=== PATIENT | female | born 1945 | race Caucasian/White ===

== ENCOUNTER 2017-05-23 09:40 | Outpatient (CLI) | payer MEDICARE, OTHER ==
--- NOTE | 2017-05-25 08:34 | Mammography Report ---
DIGITAL SCREENING MAMMOGRAM: 05/23/2017 CLINICAL INDICATION: A 71-year-old with personal history of right breast cancer status post mastecto my. TECHNIQUE: Left CC, laterally exaggerated CC, MLO views were obtained. COMPARISON: 03/2016, 03/2015, 05/2014, 04/2014, 08/2011, 07/2010. The left breast again demonstrates scattered fibroglandular densities bilaterally. Coarse, typically benign calcifications are present. No suspicious masses, clustered microcalcifications, or regions of architectural distortion are identified. IMPRESSION: BENIGN FINDINGS. RECOMMENDATION: ROUTINE ANNUAL SCREENING UNLESS OTHERWISE CLINICALLY INDICATED. BIRADS CATEGORY: 2, BENIGN FINDINGS. STANDARD QUALIFYING STATEMENTS 1. This examination was reviewed with the aid of Computed-Aided Detection (CAD). 2. A negative or benign imaging report should not delay biopsy if clinically suspicious findings are present. Consider surgical consultation if warranted. More than 5% of cancers are not identified b y imaging. 3. Dense breasts may obscure an underlying neoplasm. JOB #: [id number] EXT JOB #:
== END 2017-05-23 09:41 | disposition home or self-care (01) ==
LOC: DI 09:40
PROVIDERS: ATTEND Physician Assistant Medical
DX: Z12.31 Encounter for screening mammogram for malignant neoplasm of breast (principal); Z85.3 Personal history of malignant neoplasm of breast; Z90.11 Acquired absence of right breast and nipple

== ENCOUNTER 2018-07-10 10:20 | Outpatient (CLI) | payer MEDICARE, OTHER | END 2018-07-10 10:21 | disposition home or self-care (01) | LOC: DI 10:20 | PROVIDERS: ATTEND Internal Medicine | DX: Z12.31 Encounter for screening mammogram for malignant neoplasm of breast (principal) | CPT/HCPCS: 77063 ==

== ENCOUNTER 2018-08-12 09:16 | Outpatient (CLI) | payer MEDICARE, OTHER ==
--- NOTE | 2018-08-12 16:36 | DEXA Report ---
Reason: MENOPAUSAL STATE Procedure Date: 08/12/2018 Accession Number: [id number] / [id number] Procedure: DEX - Dexa Spine and/or Hip CPT Code: FULL RESULT: EXAM: Dexa Spine and/or Hip DATE: 08/12/2018 10:20 AM CLINICAL HISTORY: MENOPAUSAL STATE TECHNIQUE: Dual energy x-ray absorptiometry (DXA) was performed on a i-nexus System. Regions measured are the AP Spine, femoral neck, and if needed forearm. COMPARISON: 08/07/2016 In accordance with the International Society for Clinical Densitometry (ISCD) guidelines, data from previous exams may be reanalyzed using current recommendations and techniques. This is done to allow a more accurate basis for comparison with the current study. FINDINGS: The data for the lumbar spine is as follows: BMD (g/cm/cm) T-SCORE Z-SCORE REGION L1 0.843 -2.4 -0.4 L2 0.964 -2.0 0.0 L3 0.999 -1.7 0.3 L4 1.047 -1.3 0.7 TOTAL 0.970 -1.8 0.2 NOTE: All evaluable vertebrae are used for classification The data for the hip is as follows: BMD (g/cm/cm) T-SCORE Z-SCORE REGION Neck 0.730 -2.2 -0.2 TOTAL 0.647 -2.9 -1.0 NOTE: The femoral neck or total proximal femur, whichever is lowest, is used for classification. DXA RESULTS SUMMARY: Spine SCAN DATE AGE BMD CHANGE VS CHANGE VS PREVIOUS PREVIOUS % 08/12/2018 [age] 0.970 0.012 1.3 08/07/2016 [age] 0.958 * Denotes significant change at the 95% confidence level. Denotes dissimilar scan types or analysis methods. DXA RESULTS SUMMARY: Hip SCAN DATE AGE BMD CHANGE VS CHANGE VS PREVIOUS PREVIOUS % 08[birth year]12/2018 72.7 0.647 -0.023 -3.4 08/07/2016 70.7 0.670 * Denotes significant change at the 95% confidence level. Denotes dissimilar scan types or analysis methods. IMPRESSION: THE WHO CLASSIFICATION BASED ON THE INTERNATIONAL REFERENCE STANDARD IS OSTEOPOROSIS. THE FRACTURE RISK IS HIGH. RECOMMENDATION: Patients with diagnosis of osteoporosis or osteopenia should have regular bone mineral density assessment. For those eligible for Medicare, routine testing is allowed once every 2 years. Testing frequency can be increased for patients who have rapidly progressing disease or for those who are receiving medical therapy to restore bone mass. COMMENT: World Health Organization (WHO) definitions for osteoporosis and osteopenia: NORMAL BMD: T-score at -1.0 or higher, fracture risk is low OSTEOPENIA BMD: T-score between -1.0 and -2.5, fracture risk is increased. OSTEOPOROSIS BMD: T-score at -2.5 or lower, fracture risk is high. National Osteoporosis Foundation recommends: 1. Obtain adequate dietary calcium (at least 1200 mg per day) and vitamin D (400-800 international units per day). 2. Participate, as appropriate, in regular weightbearing and muscle-strengthening exercise. 3. Avoid tobacco use and reduce alcohol and caffeine intake. 4. For more detailed information see the website at www.NOF.org.
== END 2018-08-12 09:17 | disposition home or self-care (01) ==
LOC: DI 09:16
PROVIDERS: ATTEND Physician Assistant Medical
DX: M81.0 Age-related osteoporosis without current pathological fracture (principal)
CPT/HCPCS: 77080

== ENCOUNTER 2019-02-19 10:43 | Outpatient (CLI) | payer MEDICARE, OTHER ==
[2019-02-19 17:38] LABS: BASOPHILS % (AUTO) 0.3 %; EOSINOPHILS # (AUTO) 0.1 10^3/uL (0.0-0.7); EOSINOPHILS % (AUTO) 1.8 %; LYMPHOCYTES # (AUTO) 1.8 10^3/uL (1.5-3.5); LYMPHOCYTES % (AUTO) 25.2 %; MEAN CORPUSCULAR HGB CONC 32.8 g/dL (32.0-36.0); MEAN CORPUSCULAR VOLUME 88.4 fL (81.0-99.0); MEAN PLATELET VOLUME 9.8 fL (7.9-10.8); MONOCYTES # (AUTO) 0.4 10^3/uL (0.0-1.0); MONOCYTES % (AUTO) 6.2 %; NEUTROPHILS # (AUTO) 4.8 10^3/uL (1.5-6.6); NEUTROPHILS % (AUTO) 66.5 %; PLT - PLATELET COUNT 193 10^3/uL (130-450); RED BLOOD COUNT 4.47 10^6/uL (4.20-5.40); RED CELL DISTRIBUTION WIDTH 14.4 % (12.0-15.0); WHITE BLOOD COUNT 7.3 x10^3/uL (4.8-10.8)
[2019-02-19 17:54] LABS: ALBUMIN 4.1 g/dL (3.2-5.5); ALBUMIN/GLOBULIN RATIO 1.6 (1.0-2.2); BILIRUBIN,TOTAL 0.6 mg/dL (0.2-1.0); CALCIUM 9.6 mg/dL (8.5-10.3); CREATININE 0.6 mg/dL (0.4-1.0); TOTAL PROTEIN 6.7 g/dL (6.7-8.2)
== END 2019-02-19 10:44 | disposition home or self-care (01) ==
LOC: LAB.F 10:43
PROVIDERS: ATTEND Physician Assistant Medical
DX: I10 Essential (primary) hypertension (principal)
CPT/HCPCS: 36415; 80053; 85025

== ENCOUNTER 2019-02-21 08:29 | Outpatient (CLI) | payer MEDICARE, OTHER ==
--- NOTE | 2019-02-21 15:21 | Ultrasound Report ---
Reason: ENLARGED THYROID Procedure Date: 02/21/2019 Accession Number: [id number] / [id number] Procedure: US - Head or Neck Soft Tissue CPT Code: FULL RESULT: EXAM: THYROID ULTRASOUND EXAM DATE: 02/21/2019 09:30 AM. CLINICAL HISTORY: Thyroid enlargement COMPARISON: None. TECHNIQUE: Real time sonographic imaging of the thyroid was performed by the retail area manager. Multiple sales promotion representative static images were saved for review. FINDINGS: THYROID GLAND: Right Lobe: 6.2 x 1.8 x 1.6 cm, volume 9.5 cc. Normal background echotexture. Right Lobe Dominant Nodules: 1. Upper pole spongiform 1.2 x 0.9 x 0.7 cm. 2. Mid pole isoechoic solid with coarse calcification 1 x 0.9 x 0.8 cm. 3. Inferior pole isoechoic solid with calcification 2.1 x 1.2 x 1.6 cm. Left Lobe: 6.8 x 1.8 x 2 cm, volume 13 cc. Normal background echotexture. Left Lobe Dominant Nodules: 1. Upper pole predominantly cystic with septations and possible small solid component 2.6 x 1.6 x 1.8 cm. 2. Mid to inferior pole complex spongiform 1.3 x 1 x 0.9 cm. 3. Inferior pole spongiform 1.2 x 1.2 x 0.9 cm Isthmus: 0.3 cm AP. Isthmic Nodules: None. LYMPH NODES: Scattered lymph nodes, dominant right level 2: 2.2 x 0.6 x 1.1 cm and dominant left level 2: 1.8 x 1.0 x 0.5 cm. OTHER: None. IMPRESSION: Suggest FNA of the dominant right inferior pole and dominant left superior pole thyroid nodules. If FNA is not performed suggest follow-up thyroid ultrasound in 6 months. Management recommendations are based on 2015 [place] [employer] Management Guidelines for Adult Patients with Thyroid Nodules and Differentiated Thyroid Cancer. RADIA
== END 2019-02-21 08:30 | disposition home or self-care (01) ==
LOC: DI 08:29
PROVIDERS: ATTEND Physician Assistant Medical
DX: E04.2 Nontoxic multinodular goiter (principal)
CPT/HCPCS: 76536

== ENCOUNTER 2019-08-01 08:47 | Outpatient (CLI) | payer MEDICARE, OTHER | END 2019-08-01 08:48 | disposition home or self-care (01) | LOC: LAB 08:47 | PROVIDERS: ATTEND Physician Assistant Medical | DX: E04.2 Nontoxic multinodular goiter (principal); Z12.11 Encounter for screening for malignant neoplasm of colon | CPT/HCPCS: 36415; 84443 ==

== ENCOUNTER 2019-08-01 09:08 | Outpatient (CLI) | payer MEDICARE, OTHER ==
--- NOTE | 2019-08-04 09:30 | Mammography Report ---
Reason: ROUTINE MAMMO Procedure Date: 08/01/2019 Accession Number: [id number] / [id number] Procedure: MITCH - Screening Mammo Left w/Abelino CPT Code: FULL RESULT: EXAM: Screening Mammo Left w/Abelino DATE: 08/01/2019 9:31 AM CLINICAL HISTORY: Screening encounter. History of late childbearing. Personal history of breast cancer status post right mastectomy circa 2013. TECHNIQUE: (L) - Left CC, laterally exaggerated CC, MLO views were obtained. COMPARISON: 07/10/2018 through 06/03/2014. PARENCHYMAL PATTERN: (A) - The breast(s) demonstrate(s) scattered fibroglandular densities. FINDINGS: There are coarse typically benign calcifications. There are no suspicious masses, calcifications, or areas of distortion. IMPRESSION: Benign findings. BI-RADS category 2. RECOMMENDATION: (ANNUAL) - Recommend routine annual screening mammography. BI-RADS CATEGORY: (2) - Benign Findings. STANDARD QUALIFYING STATEMENTS: 1. This examination was not reviewed with the aid of Computer-Aided Detection (CAD). 2. A negative or benign imaging report should not preclude biopsy if clinically suspicious findings are present. 3. Dense breasts may obscure an underlying neoplasm. 4. This examination was reviewed with the aid of 3D breast imaging (tomosynthesis).
== END 2019-08-01 09:09 | disposition home or self-care (01) ==
LOC: DI 09:08
PROVIDERS: ATTEND Internal Medicine
DX: Z12.31 Encounter for screening mammogram for malignant neoplasm of breast (principal); Z08 Encounter for follow-up examination after completed treatment for malignant neoplasm; Z85.3 Personal history of malignant neoplasm of breast
CPT/HCPCS: 77063

== ENCOUNTER 2019-08-08 08:00 | Outpatient (CLI) | payer MEDICARE, OTHER | END 2019-08-08 23:59 | disposition home or self-care (01) | LOC: LAB.R 08:00 | PROVIDERS: ATTEND Physician Assistant Medical | DX: Z12.11 Encounter for screening for malignant neoplasm of colon (principal); E04.2 Nontoxic multinodular goiter; E04.9 Nontoxic goiter, unspecified | CPT/HCPCS: 82274 ==

== ENCOUNTER 2019-08-25 10:07 | Outpatient (CLI) | payer MEDICARE, OTHER ==
--- NOTE | 2019-08-25 16:08 | Ultrasound Report ---
Reason: RT AXILLA LUMP Procedure Date: 08/25/2019 Accession Number: [id number] / [id number] Procedure: US - Breast Unilateral Limited CPT Code: Final Report FULL RESULT: EXAM: Breast Unilateral Limited DATE: 08/25/2019 11:55 AM CLINICAL HISTORY: RT AXILLA LUMP COMPARISON: None. TECHNIQUE: Targeted ultrasound was performed of the right axillary region. Color Doppler was employed as appropriate. FINDINGS: In the axillary region of multiple nodules the largest of which measures up to 3.1 x 2.5 x 2.8. The appearance is irregular in shape, taller than wide and hypoechoic in echogenicity, suspicious appearance. IMPRESSION: Suspicious abnormality. RECOMMENDATION: Ultrasound-guided biopsy. BIRADS CATEGORY 5 RADIA
--- NOTE | 2019-08-26 08:09 | DEXA Report ---
Reason: OSTEOPOROSIS Procedure Date: 08/25/2019 Accession Number: [id number] / [id number] Procedure: DEX - Dexa Spine and/or Hip CPT Code: Final Report FULL RESULT: EXAM: Dexa Spine and/or Hip DATE: 08/25/2019 10:47 AM CLINICAL HISTORY: OSTEOPOROSIS TECHNIQUE: Dual energy x-ray absorptiometry (DXA) was performed on a testhub System. Regions measured are the AP Spine, femoral neck, and if needed forearm. COMPARISON: 08/12/2018. In accordance with the International Society for Clinical Densitometry (ISCD) guidelines, data from previous exams may be reanalyzed using current recommendations and techniques. This is done to allow a more accurate basis for comparison with the current study. FINDINGS: The data for the lumbar spine is as follows: BMD (g/cm/cm) T-SCORE Z-SCORE REGION L1 0.774 -3.0 -0.9 L2 0.892 -2.6 -0.5 L3 0.983 -1.8 0.3 L4 1.046 -1.3 0.8 TOTAL 0.934 -2.0 0.1 NOTE: All evaluable vertebrae are used for classification The data for the hip is as follows: BMD (g/cm/cm) T-SCORE Z-SCORE REGION Neck 0.697 -2.5 -0.3 TOTAL 0.623 -3.1 -1.0 NOTE: The femoral neck or total proximal femur, whichever is lowest, is used for classification. DXA RESULTS SUMMARY: Spine SCAN DATE AGE BMD CHANGE VS CHANGE VS PREVIOUS PREVIOUS % 08/25/2019 73.8 0.934 -0.036* -3.7* 08/12/2018 72.7 0.970 0.012 1.3 08/07/2016 70.7 0.958 * Denotes significant change at the 95% confidence level. Denotes dissimilar scan types or analysis methods. DXA RESULTS SUMMARY: Hip SCAN DATE AGE BMD CHANGE VS CHANGE VS PREVIOUS PREVIOUS % 08/25/2019 73.8 0.623 -0.024 -3.7 08/12/2018 72.7 0.647 -0.023 -3.4 08/07/2016 70.7 0.670 * Denotes significant change at the 95% confidence level. Denotes dissimilar scan types or analysis methods. IMPRESSION: THE WHO CLASSIFICATION BASED ON THE INTERNATIONAL REFERENCE STANDARD IS OSTEOPOROSIS. THE FRACTURE RISK IS HIGH. RECOMMENDATION: Patients with diagnosis of osteoporosis or osteopenia should have regular bone mineral density assessment. For those eligible for Medicare, routine testing is allowed once every 2 years. Testing frequency can be increased for patients who have rapidly progressing disease or for those who are receiving medical therapy to restore bone mass. COMMENT: World Health Organization (WHO) definitions for osteoporosis and osteopenia: NORMAL BMD: T-score at -1.0 or higher, fracture risk is low OSTEOPENIA BMD: T-score between -1.0 and -2.5, fracture risk is increased. OSTEOPOROSIS BMD: T-score at -2.5 or lower, fracture risk is high. National Osteoporosis Foundation recommends: 1. Obtain adequate dietary calcium (at least 1200 mg per day) and vitamin D (400-800 international units per day). 2. Participate, as appropriate, in regular weightbearing and muscle-strengthening exercise. 3. Avoid tobacco use and reduce alcohol and caffeine intake. 4. For more detailed information see the website at www.NOF.org.
== END 2019-08-25 10:08 | disposition home or self-care (01) ==
LOC: DI 10:07
PROVIDERS: ATTEND Internal Medicine
DX: N63.31 Unspecified lump in axillary tail of the right breast (principal); M81.0 Age-related osteoporosis without current pathological fracture; Z90.11 Acquired absence of right breast and nipple; Z85.3 Personal history of malignant neoplasm of breast
CPT/HCPCS: 76642; 77080

== ENCOUNTER 2019-08-27 13:37 | Outpatient (CLI) | payer MEDICARE, OTHER ==
[2019-08-27] MEDS ORDERED: BUFFERED LIDOCAINE 10 ML SYRINGE ONE (13:55)
[2019-08-27] MEDS ORDERED: BUFFERED LIDOCAINE 10 ML SYRINGE IU ONE (15:30)
--- NOTE | 2019-08-27 15:59 | Ultrasound Report ---
Reason: RT AXILLA MASS Procedure Date: 08/27/2019 Accession Number: [id number] / [id number] Procedure: US - Biopsy Breast Core CPT Code: Final Report FULL RESULT: PROCEDURE: Ultrasound-guided needle biopsy of right axillary mass. CLINICAL DATA: Targeted mass measuring 4.6 x 0.7 x 3.8 cm with irregular margins in the right axilla. Informed consent was obtained. Using standard aseptic technique, both 1% buffered lidocaine was injected into the right axillary region for local anesthesia. An 18-gauge Wheelrightno biopsy device and its introducer needle device was used to obtain 3 specimens. The wound was dressed and ice applied. The patient was observed for approximately 15 minutes, then was discharged from diagnostic imaging Department in good condition following instructions on wound care and obtaining biopsy results. The patient is scheduled to receive the biopsy results from the referring physician. The tissue was sent for histologic analysis. IMPRESSION: Ultrasound-guided biopsy of the right axilla. AN ADDENDUM WILL BE MADE TO THIS REPORT WHEN PATHOLOGY IS REVIEWED TO ESTABLISH CONCORDANCE.
== END 2019-08-27 13:38 | disposition home or self-care (01) ==
LOC: DI 13:37
PROVIDERS: ATTEND Internal Medicine Hematology & Oncology
DX: C77.3 Secondary and unspecified malignant neoplasm of axilla and upper limb lymph nodes (principal); Z08 Encounter for follow-up examination after completed treatment for malignant neoplasm; Z85.3 Personal history of malignant neoplasm of breast; Z90.10 Acquired absence of unspecified breast and nipple
CPT/HCPCS: 19083; 88305; 88360

== ENCOUNTER 2019-09-23 09:58 | Day surgery (SDC) | payer MEDICARE, OTHER ==
[2019-09-23] MEDS ORDERED: MIDAZOLAM 2 MG/2 ML VIAL IVP ONE (09:59)
[2019-09-23] MEDS ORDERED: fentaNYL 100 MCG/2 ML VIAL IVP ONE (09:59)
[2019-09-23] MEDS ORDERED: ONDANSETRON 4 MG/2 ML VIAL IVP ONE (09:59)
[2019-09-23] MEDS ORDERED: ROCURONIUM 50 MG/5 ML VIAL IVP ONE (09:59)
[2019-09-23] MEDS ORDERED: ePHEDrine 50 MG/ML VIAL IVP ONE (09:59)
[2019-09-23] MEDS ORDERED: PROPOFOL 200 MG/20 ML VIAL IVP ONE (09:59)
[2019-09-23] MEDS ORDERED: LIDOCAINE 2% 10 ML MDV SUBQ ONE (09:59)
[2019-09-23] MEDS ORDERED: CEFAZOLIN SODIUM IN 0.9 % NACL 2 GM/100 ML BAG IV ONE (10:12)
[2019-09-23] MEDS ORDERED: LACTATED RINGERS 1,000 ML IV ONE ×3 (10:13→15:37)
--- NOTE | 2019-09-23 11:55 | ANESTHESIA ---
Pre-Anesthesia VS, & Labs - Diagnosis Right breast cancer, need for central line - Procedure Right axillary node dissection, portacath insertion Vital Signs: Temp Pulse Resp BP Pulse Ox 37.4 C 86 16 186/88 H 98 09/23/19 10:33 09/23/19 10:33 09/23/19 10:33 09/23/19 10:33 09/23/19 10:33 Height 5 ft 7 in Weight (kg) 54 kg Body Mass Index 19.4 - NPO >8 hours, Other (Sip of water at 0730) - Is Patient ?: Not Applicable - Lab Results Lab results reviewed: Yes Home Medications and Allergies Home Medications: Ambulatory Orders Ascorbic Acid [Vitamin C] 500 mg PO DAILY 09/16/19 Aspirin [Aspirin EC] 81 mg PO ONCE PRN 09/16/19 Magnesium 125 mg PO DAILY 09/23/19 Lisinopril 10 mg PO DAILY 07/22/14 Multivitamin [Multivitamins] 1 each PO DAILY 01/20/15 Ascorbic Acid [Vitamin C] 500 mg PO DAILY 09/16/19 Aspirin [Aspirin EC] 81 mg PO ONCE PRN 09/16/19 Magnesium 125 mg PO DAILY 09/23/19 Allergies/Adverse Reactions: Allergies Allergy/AdvReac Type Severity Reaction Status Date / Time cortisone [Cortisone] AdvReac Intermediate shaking, Verified 09/03/19 12:07 dizzy Anes History & Medical History - Anesthetic History Anesthesia Complications: reports: No previous complications Family history of Anesthesia Complications: Denies Family history of Malignant Hyperthermia: Denies - Medical History Cardiovascular: reports: None, Hypertension Pulmonary: reports: None Gastrointestinal: reports: None, Colon polyps Urinary: reports: None Neuro: reports: None Musculoskeletal: reports: Osteoarthritis Endocrine/Autoimmune: reports: None Blood Disorders: reports: None Skin: reports: None Smoking Status: Never smoker Psychosocial: reports: No issues indicated - Surgical History General: Appendectomy, Colonoscopy Eyes Ears Nose Throat (EENT): Tonsil/Adenoidectomy Gynecologic: Tubal ligation Exam General: Alert, Oriented x3, Cooperative Dental: WNL Mouth Opening: Greater than 4 Fingerbreadths Neck Mobility: Normal Mallampati classification: II Thyromental Distance: greater than 6 cm Respiratory: Lungs clear Cardiovascular: Regular rate Neurological: Normal speech Mental/Cognitive Status: Alert/Oriented X3 Cognitive Status: Within normal limits Plan Anesthesia Type: General Consent for Procedure(s) Verified and Reviewed: Yes Code Status: Attempt Resuscitation ASA classification: 2-Mild systemic disease Is this case an emergency?: No
[2019-09-23] MEDS: BUPIVACAINE 0.5% PF 30 ML VIAL ONE ×2 (14:10→15:38)
[2019-09-23] MEDS: LIDOCAINE 1%-EPI 1:100000 20 ML MDV ONE ×2 (14:10→15:38)
--- NOTE | 2019-09-23 17:15 | XRAY Report ---
Reason: Port placement Procedure Date: 09/23/2019 Accession Number: [id number] / [id number] Procedure: XR - Chest for Line Placement CPT Code: Final Report FULL RESULT: EXAM: CHEST RADIOGRAPHY EXAM DATE: 09/23/2019 04:30 PM. CLINICAL HISTORY: Port placement. COMPARISON: None. TECHNIQUE: 1 view. FINDINGS: Lungs/Pleura: Bilateral round midlung parenchymal opacities are present; each measuring 2.5-3 cm in maximal dimension. Lungs are hyperinflated. No pneumothorax. Mediastinum: Within exam limitations, the cardiomediastinal contour is normal. Other: Left-sided portacatheter tip is at the brachiocephalic superior vena caval junction. Surgical clips in the right axilla are noted. A minimal amount of subcutaneous emphysema tracks about the right chest wall. IMPRESSION: 1. Portacatheter tip at the brachiocephalic-SVC junction. No postprocedural pneumothorax. 2. Bilateral midlung airspace opacities. Consider further characterization with cross-sectional imaging if this is an unexpected finding. 3. Postsurgical changes in the right chest wall /axilla; minimal subcutaneous emphysema. RADIA
--- NOTE | 2019-09-23 17:37 | OPERATIVE REPORT ---
Operative Report - General Procedure Date: 09/23/19 Planned Procedure: Left subclavian port placement and right axillary node dissection with excision of axillary mass Pre-Op Diagnosis: Recurrent right breast cancer Procedure Performed: Left subclavian port placement and right axillary node dissection with excision of axillary mass Post Op Diagnosis: Recurrent right breast cancer - Procedure Note Primary Surgeon: Vinod Anesthesia Provider: DELTA Lewis Anesthesia Technique: General ET tube, Local Pathology: Right axillary mass and node packet to pathology in formalin Estimated Blood Loss (mL): 100 Drain/Tube Type: Duke drain (19F) Findings: Large right axillary mass extending beneath the pectoralis minor and attached to the axillary vein, the long thoracic nerve of Coleman, and the pectoralis minor muscle. Complications: None apparent - Other Other Information/Narrative: After obtaining informed consent, the patient is brought to the operating room and placed in the supine position on the operating table. Following successful induction of general endotracheal anesthesia, appropriate padding of all bony prominences, and placement of appropriate monitors, the chest and bilateral axilla were prepped and draped in the standard surgical fashion. A timeout was held per scope protocol. All portions of the surgical safety checklist were followed before, during, and after the procedure. We began the procedure by placement of a PowerPort in the left subclavian vein. This was done by anesthetizing the skin in the deltopectoral groove and then a ccessing the subclavian vein by the Seldinger technique. The J-wire was gently placed into the vein and its position and the subclavian vein was verified using fluoroscopy. A pocket was then created on the chest wall a proximally 3 cm inferior to the access site. This was done by creating an incision and then bluntly forming a pocket. The tubing was placed from the access site into the pocket using the supplied tunneling device. The port was assembled and flushed appropriately and then sewn into place in the pocket. The dilator and introducer were passed over the wire and into the vein. The dilator was then removed leaving only the introducer. The tubing was gently fed through the introducer and into the subclavian vein. The introducer was then removed. The port was checked for patency and flushed and ashley easily. The incision was then closed in layers with Vicryl Monocryl suture and Dermabond was applied to the skin. Once this was dry, we turned our attention to the axillary mass on the right side. The mass was easily palpable in the anterior portion of the right axilla. The area over the mass was infiltrated with a mixture of local anesthetics to provide a field block. An elliptical incision was fashioned over the mass to include the skin that was clearly attached to the mass. This was carried through the skin and subcutaneous tissue to the subcutaneous region belowWe noted immediately that the mass was densely adherent to the pectoralis minor muscle. We began our dissection by mobilizing the more inferior portion of the node packet and continuing superiorly. All elements of the node packet were addressed with hemoclips prior to division, specifically all vascular structures including lymphatics, arteries, and veins. We continued our dissection around the entire mass until what was left was the area adherent to the chest wall beneath the pectoralis minor muscle and what was densely adherent to the vein in the long thoracic nerve of Coleman. At this point we carefully and painstakingly chipped away the tumor using Metzenbaum scissors preserving the long thoracic nerve and the axillary vein. A small hung was created in the vein and this was closed with a single 4-0 Prolene suture without further event. The mass itself continued superiorly into the chest and into the deep neck structures. The decision was made not to follow it higher than the clavicle as it would not benefit the patient and could possibly cause greater damage during dissection. We remove the part of the mass that was accessible and passed it from the table as a specimen. The wound was checked for hemostasis. A deeper but accessible firm calcified node was palpated and this was gently removed and sent with the specimen. What was left was a skeletonized axillary vein and thoracic nerve of Coleman and clearly visible pectoralis major pectoralis minor and chest wall. All level 1 2 and 3 yrn tissue was removed.The wound was irrigated with warm water and checked for hemostasis once again. A 19 [place] Duke drain was placed in the pocket and brought out anteromedially. This was sewn into place with a nylon suture. The pocket was then closed in 2 layers with Vicryl Monocryl suture. All sponge, needle, and instrument counts were correct at the conclusion of the case. The patient was allowed to awaken from anesthesia without difficulty and taken to the postanesthesia care unit in good condition.
[2019-09-23 18:00] VITALS: BP 155/82
== END 2019-09-23 09:59 | disposition home or self-care (01) ==
LOC: SDS 09:58
PROVIDERS: ATTEND Surgery
PROC: 02HV33Z Insertion of Infusion Device into Superior Vena Cava, Percutaneous Approach (ICD-10-PCS; 2019-09-23)
PROC: 07T50ZZ Resection of Right Axillary Lymphatic, Open Approach (ICD-10-PCS; principal; 2019-09-23 11:45)
PROC: 0JH60WZ Insertion of Totally Implantable Vascular Access Device into Chest Subcutaneous Tissue and Fascia, Open Approach (ICD-10-PCS; 2019-09-23 11:45)
DX: C50.611 Malignant neoplasm of axillary tail of right female breast (principal); C77.3 Secondary and unspecified malignant neoplasm of axilla and upper limb lymph nodes; Z90.11 Acquired absence of right breast and nipple; Z17.1 Estrogen receptor negative status [ER-]; I10 Essential (primary) hypertension; Z79.899 Other long term (current) drug therapy; Z77.22 Contact with and (suspected) exposure to environmental tobacco smoke (acute) (chronic); Z79.82 Long term (current) use of aspirin
CPT/HCPCS: 36561; 38525; C1788; J0690; J7120; 71045

== ENCOUNTER 2019-10-08 11:41 | Outpatient (CLI) | payer MEDICARE, OTHER ==
[2019-10-08 10:03] LABS: CREATININE 0.7 mg/dL (0.4-1.0)
[2019-10-08] MEDS ORDERED: IOVERSOL 320 50 ML VIAL ONE (13:55)
[2019-10-08] MEDS ORDERED: IOVERSOL 320 100 ML VIAL IVP ONE ×2 (13:55→18:36)
--- NOTE | 2019-10-08 16:59 | CT Report ---
Reason: BREAST CA Procedure Date: 10/08/2019 Accession Number: [id number] / [id number] Procedure: CT - SOFT TISSUE NECK W CPT Code: Final Report FULL RESULT: EXAM: CT SOFT TISSUE NECK WITH CONTRAST. EXAM DATE: 10/08/2019 03:09 PM. HISTORY: 73-year-old with history of breast cancer. Evaluate for neck pathology. COMPARISONS: CHEST W/ 10/08/2019 2:53 PM HEAD OR NECK SOFT TISSUE 02/21/2019 9:13 AM. TECHNIQUE: Routine soft tissue neck CT protocol with contrast. Reconstructions: Coronal and sagittal. IV contrast: 100 mL OPTI 320. In accordance with CT protocol optimization, one or more of the following dose reduction techniques were utilized for this exam: automated exposure control, adjustment of mA and/or KV based on patient size, or use of iterative reconstructive technique. FINDINGS: Dental amalgam beam hardening artifact technically limits evaluation of the oral cavity, oropharynx, and surrounding soft tissues. Visualized Intracranial Contents: There appears to be invagination of arachnoid granulation through the inner table into the diploic space of the right occipital calvarium (series 2, image 1). Otherwise the visualized intracranial contents appear normal. Orbits: Symmetric and unremarkable. Sinuses: Visualized paranasal sinuses and mastoid air cells are clear. Oral cavity: The visualized oral cavity is unremarkable. The floor of the mouth is symmetric. Pharynx: Pharyngeal mucosa is unremarkable. The infratemporal fossa, parapharyngeal spaces, and retropharyngeal space are unremarkable. The base of the tongue is symmetric and unremarkable. The airway is patent. Larynx: Larynx and supraglottic airway are patent without mass lesion. Vocal cords are symmetric. The visualized trachea is unremarkable. Parotid and Submandibular Glands: Symmetric and unremarkable. Lymph Nodes: No enlarged lymph nodes are seen within the neck. There are prominent right supraclavicular lymph nodes seen, largest measuring up to 8 mm in short axis dimension (series 2, image 84). Soft tissues: Postsurgical changes of right axillary dissection. No mass lesion or abnormal enhancement. Vascular Structures: A left chest wall Port-A-Cath is seen with a left subclavian central venous catheter. There is arthroscopic plaque involving the carotid bifurcations, greater on the right with less than 50% stenosis of the right carotid bifurcation. Visualized venous vasculature appears patent. Thyroid Gland: Punctate calcifications are seen within the right thyroid lobe largest measuring up to 4 mm (series 2, image 80). Left thyroid lobe hypodense nodule seen measuring up to 18 mm (series 2, image 77). Lung: Left upper lobe pulmonary mass seen measuring 26 x 32 mm (series 2, image 121). There are additional punctate pulmonary nodules seen within the left upper and left lower lobe. There are several punctate nodules seen within the right upper lobe largest measuring up to 7 mm (series 2, image 122). Bones: No evidence of acute fracture or malalignment. There are mild degenerative changes. There is a lytic lesion seen within the posterior left C6 vertebral body measuring up to 7 mm (series 2, image 67). Other: None. IMPRESSION: 1. Dental amalgam beam hardening artifact technically limits evaluation of the oral cavity, oropharynx, and surrounding soft tissues. 2. Prominent subcentimeter right supraclavicular lymph node seen that may be reactive but possibility of metastatic lymph nodes cannot be excluded. 3. Large left upper lobe mass lesion measuring at least 26 x 32 mm concerning for metastatic disease. Additional punctate nodule seen within the right and left lobes concerning for potential additional metastatic disease although an infectious or inflammatory process is not excluded. 4. Lytic lucency seen within the left aspect of the C6 vertebral body concerning for potential osseous metastatic disease. RADIA
[2019-10-08] MEDS ORDERED: IOVERSOL 320 50 ML VIAL PO ONE (18:36)
--- NOTE | 2019-10-09 12:36 | Nuclear Medicine Report ---
Reason: BREAST CANCER Procedure Date: 10/08/2019 Accession Number: [id number] / [id number] Procedure: NM - Bone Whole Body CPT Code: Final Report FULL RESULT: EXAM: BONE SCAN EXAM DATE: 10/08/2019 04:24 PM. CLINICAL HISTORY: Breast cancer. COMPARISON: ABDOMEN/PELVIS W10/08/2019 2:53 PM CHEST W10/08/2019 2:53 PM NECK SOFT TISSUE W10/08/2019 2:53 PM. TECHNIQUE: Following the intravenous administration of 30.7 mCi of technetium 99m MDP and an appropriate delay, a whole-body scan was performed in anterior and posterior projections. Site-specific spot views of the region of interest were obtained in various projections. FINDINGS: Exam Quality: Normal overall osseous radiotracer uptake. Physiological tracer uptake in bilateral collecting systems. Skull: Slightly heterogeneous uptake in the skull, but no definite discrete focal lesions. Thorax: There are bilateral rib lesions including foci of intensely increased uptake in the left posterior first rib, right anterior sixth rib, left anterior seventh rib, left medial posterior fourth rib, left posterior 11th rib, and in the region of the left sternoclavicular joint. Pelvis: No focal lesions. Spine: No suspicious focal uptake in the cervical or thoracic or lumbar spine. There is faintly increased uptake corresponding with left-sided degenerative disk space narrowing and endplate sclerosis at L4-L5. IMPRESSION: There are bilateral rib lesions which are concerning for metastases. RADIA
--- NOTE | 2019-10-13 08:54 | CT Report ---
Reason: BREAST CA Procedure Date: 10/08/2019 Accession Number: [id number] / [id number] Procedure: CT - Abdomen/Pelvis W CPT Code: Final Report FULL RESULT: EXAM: CT CHEST, ABDOMEN AND PELVIS EXAM DATE: 10/08/2019 03:11 PM. CLINICAL HISTORY: 73-year-old with breast cancer. COMPARISONS: Whole-body bone scan performed concurrently, 10/08/2019. TECHNIQUE: Routine helical CT imaging was performed through the chest, abdomen, and pelvis. IV contrast: 100 cc Optiray 320. Enteric contrast: Yes. Reconstructions: Coronal and sagittal. In accordance with CT protocol optimization, one or more of the following dose reduction techniques were utilized for this exam: automated exposure control, adjustment of mA and/or KV based on patient size, or use of iterative reconstructive technique. FINDINGS: Lungs/Pleura: There are numerous pulmonary masses and nodules throughout both lungs. Residence Counselor lesions are as follows: 1. Mass in the apical posterior segment of the left upper lobe measures 3.2 x 2.7 cm (series 3, image 108). 2. Nodule in the anterior segment of the right upper lobe measures 2.5 x 2.1 cm (series 3, image 159). 3. Mass in the lateral segment of the right middle lobe measures 3.8 x 2.9 cm (series 3, image 199). No pleural effusion is demonstrated. Mediastinum: Heart size is within normal limits. There is no pericardial effusion. There are mildly prominent mediastinal and right hilar lymph nodes. For example: 1. Right superior hilar node measures 1.0 x 0.9 cm (series 2, image 48). 2. Subcarinal node measures 2.0 x 1.1 cm (series 2, image 52). There is lobulated low-intermediate attenuation structure in the right cardiophrenic fat measuring 3.5 x 1.7 cm (series 2, image 82). This is indeterminate for an enlarged lymph node versus pericardial cyst. Chest Wall: The right breast is surgically absent. There are multiple surgical clips with distortion of the soft tissues of the right axilla, suggestive of lymph node dissection. There is a triangular low-attenuation collection in the subcutaneous tissues of the right axilla, measuring up to 2.6 x 2.2 cm (series 2, image 31). This is suggestive of postoperative fluid, such as seroma. There are enlarged right subpectoral and supraclavicular lymph nodes. For example: 1. Right supraclavicular node measures 1.5 x 1.0 cm (series 2, image 16). 2. Right subpectoral node measures 1.3 x 1.0 cm (series 2, image 20). A 1.2 x 0.7 cm right level 5 node (series 2, image 9) is not frankly enlarged but has slightly irregular margins and is moderately suspicious. No left axillary or supraclavicular adenopathy is demonstrated. A left-sided chest wall port is present. The thyroid is heterogeneous with multiple nodules. Largest nodule is in the left lobe and measures 2.0 x 1.4 cm (series 2, image 12). Liver: Unremarkable. No focal lesions. Gallbladder/Bile Ducts: Unremarkable. Spleen: Within normal limits. Pancreas: Unremarkable. Adrenal Glands: Mildly thickened. No discrete nodule. Kidneys: There are multiple subcentimeter hypoattenuating foci, which are too small to characterize. No hydronephrosis. A 2 mm nonobstructing calculus is present in the lower pole of the right kidney (series 5, image 23). Peritoneal Cavity/Bowel: No evidence of bowel obstruction or inflammation. There is diverticulosis of the sigmoid colon without evidence for acute diverticulitis. Pelvic Organs: Uterus is small in size, compatible with postmenopausal state. Bladder is unremarkable. No pelvic adenopathy. Vasculature: No abdominal aortic aneurysm. Bones: The bones are demineralized. There is a fracture of the left posterior 11th rib, which may be associated with a lytic lesion (series 3, image 285). There may be subtle lytic lesion in the medial most aspect of the left posterior fifth rib (series 3, image 105), which may correspond to focus of increased radiotracer uptake seen on bone scan. There may be subtle lytic lesion in the left posterior first rib (series 3, image 23), which may correspond to focus of increased tracer uptake seen on bone scan. There appear to be areas of subtle osseous sclerosis in the right anterior sixth rib (series 3, image 223) and left anterior seventh rib (series 3, image 268), which appear to demonstrate corresponding increased radiotracer uptake on bone scan. There is expansion of bilateral S2 sacral neural foramen with scalloped and central fluid attenuation. No corresponding increased radiotracer uptake is seen on bone scan, and these are suggestive of perineural cysts. Other: No retroperitoneal adenopathy. IMPRESSION: 1. Postsurgical changes from right mastectomy and axillary lymph node dissection with small amount of fluid in the right axilla, most likely representing postoperative fluid collection, such as seroma. 2. Right axillary, subpectoral, and supraclavicular adenopathy demonstrated, concerning for yrn metastases. A right level 5 lymph node is not frankly enlarged but demonstrates slightly irregular margins and is moderately suspicious for metastasis. 3. Numerous pulmonary nodules and masses are concerning for metastases. 4. Mildly prominent mediastinal and right hilar lymph nodes are moderately concerning for metastases. In the right cardiophrenic angle, there is lobulated low-intermediate attenuation structure, which is indeterminate for yrn metastasis versus pericardial cyst. 5. Suggestion of scattered subtle lytic and sclerotic lesions in both ribs, which appear to correspond to foci of increased radiotracer uptake on bone scan and are concerning for metastases. Suspected pathologic fracture of the left 11th posterior rib demonstrated. 6. No findings strongly suspicious for metastatic disease in the abdomen or pelvis. 7. Nonobstructing right nephrolithiasis. RADIA
== END 2019-10-08 11:42 | disposition home or self-care (01) ==
LOC: LAB 11:41
PROVIDERS: ATTEND Internal Medicine
DX: C50.611 Malignant neoplasm of axillary tail of right female breast (principal); R59.0 Localized enlarged lymph nodes; R91.8 Other nonspecific abnormal finding of lung field; M89.9 Disorder of bone, unspecified; N20.0 Calculus of kidney; Z90.11 Acquired absence of right breast and nipple
CPT/HCPCS: 36415; 70491; 71260; 74177; 78306; 82565; Q9967

== ENCOUNTER 2019-11-03 10:33 | Outpatient (CLI) | payer MEDICARE, OTHER | END 2019-11-03 10:34 | disposition home or self-care (01) | LOC: DI 10:33 | PROVIDERS: ATTEND Internal Medicine | DX: C50.611 Malignant neoplasm of axillary tail of right female breast (principal) | CPT/HCPCS: 93306 ==

== ENCOUNTER 2019-11-07 09:29 | Outpatient (CLI) | payer MEDICARE, OTHER ==
[2019-11-07 10:05] LABS: CREATININE 0.8 mg/dL (0.4-1.0)
[2019-11-07] MEDS ORDERED: GADOBUTROL 10 MMOL/10 ML VIAL IVP ONE (11:40)
--- NOTE | 2019-11-07 16:09 | MRI Report ---
Reason: RT AXILLARY MASS, BREAST CANCER Procedure Date: 11/07/2019 Accession Number: [id number] / [id number] Procedure: MRI - Brain W/WO CPT Code: Final Report FULL RESULT: EXAM: MRI BRAIN WITHOUT AND WITH CONTRAST EXAM DATE: 11/07/2019 11:47 AM. CLINICAL HISTORY: 74-year-old with history of breast cancer presenting with headache and confusion. Evaluate for intercranial pathology. COMPARISON: BONE SCAN 10/08/2019 2:58 PM. TECHNIQUE: Multiplanar, multisequence T1-weighted and fluid-sensitive MR sequences of the brain were performed before and after administration of intravenous contrast. Sequences optimized for routine evaluation. Other: None. IV Contrast: 10 mL Gadavist. FINDINGS: Brain Volume: Normal for age. Parenchyma: No acute parenchymal hemorrhage, mass, or midline shift. There is mild to moderate bilateral areas of T2/FLAIR signal hyperintensity seen. There are no areas of abnormal parenchymal hemosiderin deposition seen. No areas of restricted diffusion seen to suggest acute infarct. No abnormal enhancement. Ventricles/Cisterns: Lateral ventricles and third ventricle appear prominent questionably out of proportion for the extent of volume loss. No abnormal extra-axial fluid collection or hemorrhage. Orbits: Symmetric and unremarkable. Sella Turcica: The pituitary gland, cavernous sinuses, suprasellar cistern and optic chiasm are unremarkable. IAC: Symmetric and unremarkable. Vasculature: Normal signal flow void is seen in the major arterial structures at the skull base. The dural sinuses are patent and enhance normally. Sinuses: No acute sinus disease. Bones: There is diffuse abnormal patchy T1 signal hypointensity seen throughout the calvarium with questionable minimal enhancement. On bone scan 10/08/2019 there is diffuse patchy radiotracer activity seen. Findings are concerning for potential calvarial metastasis. Correlation with CT head is suggested. Other: None. IMPRESSION: 1. No definite intracranial metastatic disease seen. 2. There is diffuse abnormal patchy T1 signal hypointensity seen throughout the calvarium with questionable minimal enhancement. On bone scan 10/08/2019 there is diffuse patchy radiotracer activity seen. Findings are concerning for potential calvarial metastasis. Correlation with CT head is suggested 3. No acute infarct, acute intracranial hemorrhage, intracranial mass, or midline shift. No abnormal intracranial postcontrast enhancement. 4. The lateral ventricles and third ventricle appear prominent questionably out of proportion for the extent of volume loss. Clinical correlation for potential normal pressure hydrocephalus is suggested. 4. Mild to moderate white matter changes seen that are nonspecific but may represent sequela of chronic small vessel ischemic disease. RADIA
== END 2019-11-07 09:30 | disposition home or self-care (01) ==
LOC: LAB 09:29
PROVIDERS: ATTEND Internal Medicine
DX: C50.611 Malignant neoplasm of axillary tail of right female breast (principal); C50.911 Malignant neoplasm of unspecified site of right female breast; R93.0 Abnormal findings on diagnostic imaging of skull and head, not elsewhere classified
CPT/HCPCS: 36415; 70553; 82565; A9585

== ENCOUNTER 2019-12-03 10:11 | Outpatient (CLI) | payer MEDICARE, OTHER ==
--- NOTE | 2019-12-03 17:47 | CONSULTATION NOTE ---
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 She had her original diagnosis in 2014, of a high-grade ductal carcinoma in situ, which was treated with a simple mastectomy. No further hormone or radiation therapy. She was followed by serial mammograms. In July she presented with a right axillary mass, and follow-up with ultrasound 08/25/2019 postive for multiple nodules, which included biopsy at that point time revealing an invasive adenocarcinoma, ER/MS negative, HER-2 +3+. She did undergo a right axillary mass excision on 09/24/2019 confirming her HER-2 positive, E ER/MS negative disease, and positive lymph nodes of 6 out of 9. She had a restaging CT scan of the abdominal and pelvis, CT of the chest, 10/08/2019, which showed multiple Nodules, prominent mediastinal and right hilar lymphadenopathy, and a bone scan positive for bilateral rib lesions, suggestive of metastatic disease. Patient does understand she has metastatic disease, and her treatment is palliative not curative. She understands she is getting her treatment every 21 days, she did do well after her first treatment with only some fatigue, little diarrhea, and mild nausea. She reports some pain and stiffness in the morning on arising for stretching exercises. She is pacing herself to manage the fatigue. She does have a son, but he lives in [place]. Her neighbor Sanjana has been helping her navigate with the medical system as well as putting her in touch with local resources. She does report some shortness of breath with activity, mild anxiety and depression, but overall feels fairly positive. She is hoping to travel some in between her treatment cycles, as this is been something meaningful to her in the past. She travels with her only son Rickey. She is . Medical/Surgical History - Past Medical History Cardiovascular: reports: Hypertension Respiratory: reports: None Neuro: None Endocrine/Autoimmune: reports: None GI: reports: Colon polyps ELEMENTARY SECRETARY: reports: Breast cancer : reports: None HEENT: reports: Chronic vision loss Psych: reports: Anxiety Musculoskeletal: reports: Osteoarthritis Derm: reports: None MRSA Hx?: No - Past Surgical History General: reports: Appendectomy, Colonoscopy /ELEMENTARY SECRETARY: reports: Tubal ligation HEENT: reports: Tonsil/Adenoidectomy Other past surgical history: Masectomy; right axillary disection - Substance History Use: Uses substance without health or social issues: NONE Social History - Living Situation Living arrangement: At home Living Situation: Alone Support System: She has a sister in [place], whom she is very close to but does not travel. Her 6 years ago of pancreatic cancer, she is lived on [facility] about 10 years. She and her built the house down at [facility] point they are currently in. She has lived a fairly independent life with very few health problems up to this point in time. Family History - Family History Family History: Mother: , CAD, Father: , Cancer (father of lung cancer age 72), Sister: Alive and Well (son alive and well 47), Other family: Alive and Well Medications/Allergies - Medications Home Medications: Ambulatory Orders Medication Instructions Recorded Confirmed lisinopriL [Lisinopril] 10 mg PO DAILY 07/22/14 12/03/19 Multivitamin [Multivitamins] 1 each PO DAILY 01/20/15 12/03/19 Ascorbic Acid [Vitamin C] 500 mg PO DAILY 09/16/19 12/04/19 Magnesium 125 mg PO DAILY 09/23/19 12/03/19 Lidocaine/Prilocain 2.5% Cream 30 gm TOP PRN PRN 11/12/19 12/03/19 [Emla 2.5% Cream] Ondansetron [Ondansetron Odt] 8 mg PO Q8H PRN 11/12/19 12/04/19 Prochlorperazine [Compazine] 10 mg PO Q6H PRN 11/12/19 12/03/19 Dexamethasone 4 mg PO DAILY MDD day of chemo 11/19/19 12/03/19 then 2 days Melatonin 3 mg PO QPM 12/04/19 12/04/19 - Allergies Allergies/Adverse Reactions: Allergies Allergy/AdvReac Type Severity Reaction Status Date / Time cortisone [Cortisone] AdvReac Intermediate shaking, Verified 11/19/19 14:30 dizzy Review of Systems - Constitutional Constitutional: reports: Fatigue (but improving), Weight loss (baseline 130; down to 120, now improving 122). denies: Fever, Chills - Cardiovascular Cardiovascular: reports: Decr. exercise tolerance - Respiratory Respiratory: reports: Cough (from lisinopril per report). denies: SOB at rest - Gastrointestinal Gastrointestinal: reports: Diarrhea (mild diarrhea with tx for two days), Good appetite. denies: Constipation, Nausea - Genitourinary Genitourinary: reports: Frequency - Musculoskeletal Musculoskeletal: reports: Muscle aches, Stiffness - Integumentary Integumentary: reports: Dryness, Hair changes (reports loosing hair) - Neurological Neurological: reports: General weakness, Memory problems (mild) - Psychiatric Psychiatric: reports: Depression, Anxiety - Hematologic/Lymphatic Hematologic/Lymphatic: denies: Recurrent infections - All Other Systems All Other Systems: reports: Reviewed and negative Physical Exam - Vital Signs Temperature: 36.9 C Pulse Rate: 87 Respiratory Rate: 16 Blood Pressure: 146/65 - Physical Exam General Appearance: positive: Alert Eyes Bilateral: positive: Normal inspection ENT: positive: No signs of dehydration. negative: Oral lesions Neck: positive: Trachea midline Cardiovascular: positive: Regular rate & rhythm Respiratory: positive: No respiratory distress, Breath sounds nml Abdomen: positive: Soft, Nml bowel sounds Skin: positive: Pallor, Dryness Extremities: positive: No pedal edema Neurologic/Psychiatric: positive: Oriented x3, Mood/affect nml, Weakness Palliative Care - POLST Patient has POLST: No Pain: Pain unchanged, Location (stiffness in am; generalized all over), Severity (5/10 does not need to take anything) Tiredness/Fatigue: Moderate (4-6) Drowsiness/Sedation: Moderate (4-6) Nausea: Moderate (4-6) (with treatment) Anorexia: Moderate (4-6) Dyspnea: Moderate (4-6) (with activity) Depression: Moderate (4-6) Anxiety: Moderate (4-6) (related to treatments) Feelings of wellbeing/Perceived Quality of Life: Fair, Acceptable Sleep: Sleeps well Constipation: No Performance Status: Patient is independent in all her ADLs, she does have her friend drive her to treatments. Otherwise she can drive to the grocery store. She is still doing her own housecleaning, she lives in a two-story home. Been doing qi chi, she and her friend were talking about returning. She does have a rowing machine which she does when she is feeling better. - Palliative Care Discussion: Patient does seem somewhat anxious about her diagnosis, and the series of events surrounding this. Her friend is trying to help her track this. She is hopeful for the treatment to work, she does understand there are further treatments and follow-up if it does not. She feels she has her affairs in order. Is very important for her to be independent, and feel in good health. She reports her son is her MARYCRUZ, we discussed having a backup as he travels and is not readily available. She would designate her neighbor needed for this, a D POA form was provided with instructions. Her point of experience was her journey with her who had pancreatic cancer. They have been 57 years, and 6 years ago. This still has a significant impact on her. She reports she and her son have not talked much about her diagnosis, though he has "talk to the doctors". Counseling provided regarding the role of palliative care, information sheet and contact information reviewed with both patient and neighbor. 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 She does have some high anxiety, but does not present with high symptom burden. She does live alone, and does have some social support, but will need further long-term planning in the future. Palliative care to provide support regarding symptom management, advanced care planning, and anticipatory guidance. Recommendations/Counseling Done: 1. Weight loss. Patient has lost about 10 pounds over the last couple months. She is eating "organically". She does do her own meal prep, we did discuss in the context of adding calories and continuing with adequate fluids to include a smoothie daily. This felt doable to her, and put on her list. 2. Fatigue. This is multifactorial. Counseling provided regarding balance of activity and rest. Patient does have rowing machine, encouraged to incorporate on her weeks off, as well as restart her qi chi. She has been in contact with Senior services, who are exploring further resources available for her. Did encourage her for use of [employer], she does have one but has not been wearing it. 3. Diarrhea. Reviewed instructions for management of postchemotherapy side effects, patient highly anxious. Recommend writing down all instructions given from clinical team, her friend Sanjana does help facilitate and reinforce information. 4. Advanced care planning. Recommended bringing in documents to scan and put in her medical records, also to update DPOA to include her neighbor Sanjana if her son were not available. We will continue to further explore her goals in the future, palliative care appointment today to set rapport and explain role. Time Spent: 60 minutes with greater than 50% of this done in counseling regarding symptom management, establishing of rapport, anticipatory guidance and advanced care planning.
== END 2019-12-03 10:12 | disposition home or self-care (01) ==
LOC: PC 10:11
PROVIDERS: ATTEND Nurse Practitioner Adult Health
DX: Z51.5 Encounter for palliative care (principal); R63.4 Abnormal weight loss; K52.1 Toxic gastroenteritis and colitis; T45.1X5A Adverse effect of antineoplastic and immunosuppressive drugs, initial encounter; R53.83 Other fatigue; F41.9 Anxiety disorder, unspecified; C50.611 Malignant neoplasm of axillary tail of right female breast; C77.3 Secondary and unspecified malignant neoplasm of axilla and upper limb lymph nodes; Z79.899 Other long term (current) drug therapy; Z79.52 Long term (current) use of systemic steroids
CPT/HCPCS: 99205

== ENCOUNTER 2019-12-24 08:47 | Outpatient (CLI) | payer MEDICARE, OTHER | END 2019-12-24 08:48 | disposition home or self-care (01) | LOC: DI 08:47 | PROVIDERS: ATTEND Internal Medicine | DX: C50.611 Malignant neoplasm of axillary tail of right female breast (principal) | CPT/HCPCS: 93306 ==

== ENCOUNTER 2020-01-14 11:10 | Outpatient (CLI) | payer MEDICARE, OTHER ==
--- NOTE | 2020-01-14 18:13 | CONSULTATION NOTE ---
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 She is currently receiving Perjeta/ Herceptin/Doxil Taxol and tolerating with very few side effects other than some fatigue. 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 She was followed by serial mammograms, no further hormonal radiation therapy. Recurrent disease was discovered on clinical exam 08/13/2019 for right axillary mass, for which she received an excision 09/24/2019. Patient does understand she has metastatic disease, her disease is palliative not curative, though she does perceive is going to "get fixed". She is quite disappointed as she thought she was getting scans today. She does have a high suspicion for bone mets, but does not present with any pain or discomfort. She has very low symptom burden, other than fatigue, which she works around with pacing activities. She does defer much of her management around appointments, follow-up, to her neighbor Sanjana. I suspect given our conversation without any day here today, she may have some underlying mild memory issues. Her son does come up frequently and helps her on the weekends. She does live alone, but is managing her household and ADLs, and does not perceive herself as lonely or isolated. Palliative care continue provide support, establishing rapport, and advancing discussions regarding goals of care. Patient's past medical history includes hypertension, colon polyps, breast cancer, and osteoarthritis. Social History - Living Situation Living arrangement: At home Living Situation: Alone Support System: Patient is originally from [place], she still has a sister whom she talks to frequently but unfortunately her sister does not travel. Her about 6 years ago of pancreatic cancer, she is lived on [facility] about 10 years. She is lived a fairly independent and isolated life, with very few health problems up to this point. She is receiving support from her neighbor Sanjana who helps her track appointments as well as her son who lives over in [place] comes frequently to help her manage the household. She does manage her own finances though this appears to provide her some distress, she had been participating in activities with the [employer] including qi chi but this is not accessible at this point in time Medications/Allergies - Medications Home Medications: Ambulatory Orders Medication Instructions Recorded Confirmed lisinopriL [Lisinopril] 10 mg PO DAILY 07/22/14 01/14/20 Multivitamin [Multivitamins] 1 each PO DAILY 01/20/15 01/14/20 Ascorbic Acid [Vitamin C] 500 mg PO DAILY 09/16/19 01/14/20 Magnesium 125 mg PO DAILY 09/23/19 01/14/20 Lidocaine/Prilocain 2.5% Cream 30 gm TOP PRN PRN 11/12/19 01/14/20 [Emla 2.5% Cream] Ondansetron [Ondansetron Odt] 8 mg PO Q8H PRN 11/12/19 01/14/20 Prochlorperazine [Compazine] 10 mg PO Q6H PRN 11/12/19 01/14/20 Dexamethasone 4 mg PO DAILY MDD day of chemo 11/19/19 01/14/20 then 2 days Melatonin 3 mg PO QPM 12/04/19 01/14/20 - Allergies Allergies/Adverse Reactions: Allergies Allergy/AdvReac Type Severity Reaction Status Date / Time cortisone [Cortisone] AdvReac Intermediate shaking, Verified 01/14/20 09:09 dizzy Review of Systems - Constitutional Constitutional: reports: Fatigue (fluctuates; paces activities), Weight stable. denies: Fever, Chills - Ears, Nose & Throat Ears, Nose & Throat: denies: Mouth lesions - Cardiovascular Cardiovascular: reports: Decr. exercise tolerance. denies: Lightheadedness - Respiratory Respiratory: denies: Cough, SOB at rest, SOB with exertion - Gastrointestinal Gastrointestinal: reports: Nausea (taking nausea med without symptoms with chemo), Good appetite. denies: Abdominal pain, Constipation - Musculoskeletal Musculoskeletal: reports: Stiffness - Integumentary Integumentary: reports: Dryness, Hair changes (almost all fallen out) - Neurological Neurological: reports: General weakness. denies: Numbness - Psychiatric Psychiatric: denies: Depression, Anxiety - Hematologic/Lymphatic Hematologic/Lymphatic: denies: Recurrent infections - All Other Systems All Other Systems: reports: Reviewed and negative Physical Exam - Physical Exam General Appearance: positive: No acute distress, Alert Eyes Bilateral: positive: Normal inspection ENT: positive: No signs of dehydration Neck: positive: No JVD, Trachea midline Cardiovascular: positive: Regular rate & rhythm Respiratory: positive: No respiratory distress, Breath sounds nml Abdomen: positive: Non-tender, Soft Skin: positive: Pallor, Dryness Extremities: positive: No pedal edema Neurologic/Psychiatric: positive: Oriented x3, Mood/affect nml Palliative Care - POLST Patient has POLST: No Pain: No pain Tiredness/Fatigue: Mild (1-3) Drowsiness/Sedation: None Nausea: None Anorexia: None Dyspnea: None Depression: None Anxiety: None Feelings of wellbeing/Perceived Quality of Life: Good, Acceptable, No change Sleep: Sleeps well Constipation: No Performance Status: Patient at baseline has always been in good health, she is managing her own household, ADLs, and walks daily as well as participates in qi chi practice. - Palliative Care Discussion: In approaching patient regarding goals of care, she is hopeful for extended period of life, and resolution of her cancer. It is unclear and appears she does not understand the subtleties of this, but does understand her treatment is palliative not curative. Patient reports she does have advanced care planning documents she did at the time of her illness. She reports a D POA would be her son who is Rickey Schaeffer [phone]. When asked about her healthcare directives and choices she made, she is quite evasive, is noncommittal about what she would want her not want, she does want to be at home though for end-of-life, and believes her son would care for her. She reports she would de christopher all decision making to her son, she is not fearful of end-of-life, and was quite distressed and impacted by the decline of her with pancreatic cancer. We did discuss in the context of the current coronavirus epidemic, it is important to get her advanced care documents on file here at the hospital. She agreed to get copies and bring those in with her next visit, and agreed to review those to make sure there are reflective of her current wishes. She cannot recall all the choices she had made, though she is quite pragmatic and would not want to be dependent or have her suffering/life prolonged if she were going to lose this. Results - Lab Results Lab results reviewed: Yes Impression and Recommendations - Palliative Care Impression: This is a ely 74-year-old woman with recurrent stage IV right axillary breast cancer, HER-2 positive, hormone negative. She is receiving palliative treatment. She does present with anxiety, but not high symptom burden. Palliative care to provide support regarding advanced care planning, anticipatory guidance, and symptom management. Recommendations/Counseling Done: 1. Weight loss. Patient reports her weight loss has slowed down, and that she is gained 1 or 2. She is doing better with increasing her calories, has added more sweets despite her "organically" eating. She is quite pleased with her progress. Counseling provided regarding other ways to incorporate caloric in take and focus on health and wellbeing. 2. Fatigue. This is multifactorial. Patient is pacing activities, he is continuing to walk, counseling and problem solving regarding ways to incorporate other supportive exercise into her routine. 3. Anxiety. This is multifactorial, did review her concerns regarding coronavirus and guidelines regarding this. Counseling provided regarding education, social distancing, and self-care. Patient does defer to her neighbor Sanjana and son for assistance with managing and coping, but remains fairly independent does not perceive herself as isolated, and able to review activities that bring her ailyn and comfort. 4. Advanced care planning. Reviewed again the intent of advance care planning documents to communicate to the team, as well as to help define her wishes in the future. Patient has been instructed to bring copies in, wrote this in her instructions, verbalized understanding. We agreed we would review that they are current and reflective of her current wishes. Time Spent: 45 minutes with greater than 50% of this done in counseling regarding goals of care, symptom management, and anticipatory guidance.
== END 2020-01-14 11:11 | disposition home or self-care (01) ==
LOC: PC 11:10
PROVIDERS: ATTEND Nurse Practitioner Adult Health
DX: Z51.5 Encounter for palliative care (principal); R63.4 Abnormal weight loss; R53.83 Other fatigue; F41.9 Anxiety disorder, unspecified; I10 Essential (primary) hypertension; C50.611 Malignant neoplasm of axillary tail of right female breast; Z79.899 Other long term (current) drug therapy; Z79.52 Long term (current) use of systemic steroids; Z85.3 Personal history of malignant neoplasm of breast
CPT/HCPCS: 99215

== ENCOUNTER 2020-03-25 07:41 | Outpatient (CLI) | payer MEDICARE, OTHER | END 2020-03-25 07:42 | disposition home or self-care (01) | LOC: DI 07:41 | PROVIDERS: ATTEND Internal Medicine | DX: C50.611 Malignant neoplasm of axillary tail of right female breast (principal); Z51.11 Encounter for antineoplastic chemotherapy | CPT/HCPCS: 93306 ==

== ENCOUNTER 2020-04-28 11:57 | Outpatient (CLI) | payer MEDICARE, OTHER ==
--- NOTE | 2020-04-28 20:10 | CONSULTATION NOTE ---
Palliative Care Follow Up - Referral Referring Provider: Trish Partida PA-C Time of Visit: 4190-5027 Referral setting: [facility] Referral Reason: Anxiety/Stage IV Breast Cancer - Information Sources Records reviewed: Previous records reviewed History/Review of Systems obtained from: Patient Exam limitations: No limitations - History of Present Illness Update Brief HPI Update: This is a ely 74-year-old [place] woman with metastatic HER-2 positive, breast cancer with mets to the right axilla, lung, bone, and mediastinum since 07/2019. She has finished her frontline chemotherapy, and is currently on maintenance of Herceptin. She has tolerated this fairly well, but has had some diarrhea for a few days afterwards after eating, but has not been persistent or significantly problematic. She did lose 2+ pounds over that week, but reports she has regained it. Patient does not present with any pain, she does have some mild fatigue, her baseline is always "on the go". She continues to garden, pace herself, and remains somewhat anxious and this waiting time, but also approaches her disease pragmatically. She does have some anxiety regarding this, but has insight that she does not allow herself to go there, she tells me that the [place] are quite stoic. Patient does have the support of her son, who does help her maintain her house, she is though able to do her own ADLs and IADLs. She has a ely neighbor who provides transportation when needed and also psychosocial support. She has been putting her affairs in order, and defaults to her son for bigger picture planning issues. She has found COVID-19 somewhat overwhelming, but is maintaining proper precautions. Social History - Living Situation Living arrangement: At home Living Situation: Alone Support System: Patient is , her of pancreatic cancer 6 years ago. She is lived on [facility] about 10 years. She still has a sister whom she talks with frequently, and provides her psychosocial support. As well as her neighbor Sanjana who helps her track appointments. She does manage her own finances, though this does continue to provide her some distress. Medications/Allergies - Medications Home Medications: Ambulatory Orders Medication Instructions Recorded Confirmed lisinopriL [Lisinopril] 10 mg PO DAILY 07/22/14 04/07/20 Multivitamin [Multivitamins] 1 each PO DAILY 01/20/15 04/07/20 Ascorbic Acid [Vitamin C] 500 mg PO DAILY 09/16/19 04/07/20 Magnesium 125 mg PO DAILY 09/23/19 04/07/20 Lidocaine/Prilocain 2.5% Cream 30 gm TOP PRN PRN 11/12/19 04/07/20 [Emla 2.5% Cream] Ondansetron [Ondansetron Odt] 8 mg PO Q8H PRN 11/12/19 04/07/20 Prochlorperazine [Compazine] 10 mg PO Q6H PRN 11/12/19 04/07/20 Dexamethasone 4 mg PO DAILY MDD day of chemo 11/19/19 04/07/20 then 2 days Melatonin 3 mg PO QPM 12/04/19 04/07/20 - Allergies Allergies/Adverse Reactions: Allergies Allergy/AdvReac Type Severity Reaction Status Date / Time cortisone [Cortisone] AdvReac Intermediate shaking, Verified 04/07/20 10:39 dizzy Review of Systems - Constitutional Constitutional: reports: Fatigue (fluctuates), Weight stable (55.6 k). denies: Fever, Chills - Ears, Nose & Throat Ears, Nose & Throat: denies: Mouth lesions - Cardiovascular Cardiovascular: denies: Chest pain, Lightheadedness, Decr. exercise tolerance - Respiratory Respiratory: denies: Cough, SOB at rest - Gastrointestinal Gastrointestinal: reports: Diarrhea (with treatment a couple of days; resolved). denies: Constipation - Genitourinary Genitourinary: reports: Frequency (pushes fluids) - Musculoskeletal Musculoskeletal: reports: Stiffness - Integumentary Integumentary: reports: Dryness, Hair changes (alopecia) - Psychiatric Psychiatric: reports: Anxiety. denies: Depression - Hematologic/Lymphatic Hematologic/Lymphatic: denies: Anemia, Recurrent infections - All Other Systems All Other Systems: reports: Reviewed and negative Physical Exam - Vital Signs Temperature: 36.8 C Pulse Rate: 77 Respiratory Rate: 18 Blood Pressure: 110/64 - Physical Exam General Appearance: positive: No acute distress, Alert Eyes Bilateral: positive: No scleral icterus ENT: positive: Dry mouth Neck: positive: Trachea midline. negative: Lymphadenopathy (R), Lymphadenopathy (L) Cardiovascular: positive: Regular rate & rhythm Respiratory: positive: No respiratory distress, Breath sounds nml Abdomen: positive: Non-tender, Soft Skin: positive: Pallor Extremities: positive: No pedal edema Neurologic/Psychiatric: positive: Oriented x3, Mood/affect nml Palliative Care - POLST Patient has POLST: No Pain: No pain Tiredness/Fatigue: Mild (1-3) Drowsiness/Sedation: None Nausea: None Anorexia: Mild (1-3) Dyspnea: None Depression: None Anxiety: Mild (1-3) Feelings of wellbeing/Perceived Quality of Life: Good, Acceptable, No change Sleep: Sleeps well Constipation: No Performance Status: Patient independent in all ADLs, still maintains her house, she does walk daily, as well as participates in a qi chi practice. - Palliative Care Discussion: Patient continues to present with low symptom burden, has settled into her current way of life. Does find COVID-19 somewhat restrictive, but stays connected to her son into her neighbor. She does feel even though she lives alone and is somewhat isolated, well supported. She has been putting things regarding around end of life planning in place, we did talk about the POLST today. And reviewed the document. She is to see her son this weekend she will talk with him as well, my contact information has been provided if he has any questions. Given that she lives alone, it would be helpful to have that in place. She continues to hope for the best, with extended quantity and quality of life, she has been doing well and is very grateful for this. She does defer to her son, who is her D POA, Carie Rangel [phone] regarding her affairs and overall plans and support for EOL. Results - Lab Results Lab results reviewed: Yes Impression and Recommendations - Palliative Care Impression: This is a ely 74-year-old woman with recurrent stage IV right axillary breast cancer, HER-2 positive, hormone negative, currently receiving palliative treatment. She is on maintenance therapy, is tolerating this well. She does have high anxiety, but low symptom burden overall. Palliative care to continue provide support regarding advanced care planning, anticipatory guidance, and symptom management as it is warranted. Recommendations/Counseling Done: 1. Weight loss. Patient remains quite thin, though has been most of her life. She reports her weight is currently stable, fluctuates 1 to 2 pounds. She does work quite hard to keep her calories as well as fluid status. 2. Fatigue. This is multifactorial, patient is pacing activities, and continues to stay active. She is looking at ways to rejoin her qi chi group, but continues with a daily practice. 3. Anxiety. This is multifactorial, she is doing better with this overall. She does have good social support, though she does live alone. She is garden ing, and doing things that are supportive for her. She was more open to sharing some of her concerns and fears today, psychosocial support and presence provided. 4. Advanced care planning. Patient does have some documents, reports are done quite a while ago. She has not brought those in yet. I will call her and remind her prior to next appointment. Did introduce the POLST, and the intent o f this particular that she lives alone, if she were wanting to be a DNA R, otherwise would honor her other documents. Patient has identified her son is her D POA, we agreed to meet again with her next appointment. She is doing fairly well overall, but does recognize the seriousness of her illness. Time Spent: 30 minutes with been 50% of this done in counseling regarding anxiety and advanced care planning, anticipatory guidance.
== END 2020-04-28 11:58 | disposition home or self-care (01) ==
LOC: PC 11:57
PROVIDERS: ATTEND Nurse Practitioner Adult Health
DX: Z51.5 Encounter for palliative care (principal); C50.611 Malignant neoplasm of axillary tail of right female breast; C78.00 Secondary malignant neoplasm of unspecified lung; C78.1 Secondary malignant neoplasm of mediastinum; C79.51 Secondary malignant neoplasm of bone; Z17.1 Estrogen receptor negative status [ER-]; Z79.52 Long term (current) use of systemic steroids; Z79.899 Other long term (current) drug therapy; R63.4 Abnormal weight loss; R53.83 Other fatigue; F41.9 Anxiety disorder, unspecified
CPT/HCPCS: 99214

== ENCOUNTER 2020-06-16 11:20 | Outpatient (CLI) | payer MEDICARE, OTHER ==
--- NOTE | 2020-06-16 18:43 | CONSULTATION NOTE ---
Palliative Care Follow Up - Referral Referring Provider: Trish Partida PA-C Time of Visit: [place] [facility] [place] Reason: Met Stage IV Right Breast Cancer / Anxiety /HTN - Information Sources Records reviewed: RN notes reviewed, Previous records reviewed History/Review of Systems obtained from: Patient Exam limitations: Clinical condition (patient with), Language barrier (mild STM) - History of Present Illness Update Brief HPI Update: This is a ely 74-year-old woman with metastatic HER-2 positive breast cancer, with mets to the right axilla, lung, bone, and mediastinum since 08/10/2019. She has finished her frontline chemotherapy, and is currently on maintenance Perjeta/Herceptin. She continues to lose weight, she did lose another 1 or 2 pounds, continues with persistent mild fatigue, she does have underlying anxiety, and does present with intermittent short-term memory issues. She is feeling quite positive she had met with the oncologist, who showed no evidence from her scans of recurrent disease, does show some mild right hydronephrosis of unclear etiology, and mild vaginal prolapse. Patient unfortunately is under the misunderstanding, that she is almost finished with treatment, and shared she had only 1 more treatment. In follow-up with oncology, patient is on maintenance treatment. She does have stage IV disease and will be continued to get treated until progression of disease on her current regimen. Patient has had persistent hypertension, and review of her chart, she had originally been on lisinopril 10 mg, had been on hydrochlorothiazide which got stopped along the way, when she saw primary care on 05/13 they did add back in the hydrochlorothiazide. She has had only small improvement in her blood pressure, and it remains persistent at 163/80. She missed her appointment in 06/09 for follow-up with PCP. She has been encouraged to get a blood pressure cuff to monitor and follow-up with PCP as soon as possible. Patient's past medical history includes hypertension, colon polyps, breast cancer, and osteoarthritis. Social History - Living Situation Living arrangement: At home Living Situation: Alone Support System: Patient is , her on hospice of pancreatic cancer about 6 years ago. She is lived on [facility] about 10 years. She has a sister whom she talks frequently from [place] and provide psychosocial support though most likely is not going to come visit. She has a neighbor Sanjana who tracks appointments, helps keep her on track and safe, does do some transportation. Patient does manage her own finances though this does cause some distress. Her son does check on her every few weekends, does some shopping, and helps her also manage her home. Medications/Allergies - Medications Home Medications: Ambulatory Orders Medication Instructions Recorded Confirmed lisinopriL [Lisinopril] 10 mg PO DAILY 07/22/14 06/16/20 Multivitamin [Multivitamins] 1 each PO DAILY 01/20/15 06/16/20 Ascorbic Acid [Vitamin C] 500 mg PO DAILY 09/16/19 06/16/20 Magnesium 125 mg PO DAILY 09/23/19 06/16/20 Lidocaine/Prilocain 2.5% Cream 30 gm TOP PRN PRN 11/12/19 06/16/20 [Emla 2.5% Cream] Ondansetron [Ondansetron Odt] 8 mg PO Q8H PRN 11/12/19 06/16/20 Prochlorperazine [Compazine] 10 mg PO Q6H PRN 11/12/19 06/16/20 Dexamethasone 4 mg PO DAILY MDD day of chemo 11/19/19 06/16/20 then 2 days Melatonin 3 mg PO QPM 12/04/19 06/16/20 - Allergies Allergies/Adverse Reactions: Allergies Allergy/AdvReac Type Severity Reaction Status Date / Time cortisone [Cortisone] AdvReac Intermediate shaking, Verified 06/16/20 10:04 dizzy Review of Systems - Constitutional Constitutional: reports: Fatigue, Weight loss. denies: Fever - Ears, Nose & Throat Ears, Nose & Throat: denies: Mouth lesions - Cardiovascular Cardiovascular: reports: Decr. exercise tolerance (but still able to do gardening and housecleaning with pacing) - Respiratory Respiratory: denies: SOB at rest - Gastrointestinal Gastrointestinal: reports: Diarrhea (occasional; improved;), Early satiety. denies: Nausea - Musculoskeletal Musculoskeletal: reports: Muscle weakness - Integumentary Integumentary: reports: Dryness - Neurological Neurological: reports: Memory problems (subtle with STM issues; defers many things to son/neighbor and friend Sanjana). denies: Headache - Psychiatric Psychiatric: reports: Anxiety. denies: Depression - Hematologic/Lymphatic Hematologic/Lymphatic: denies: Recurrent infections - All Other Systems All Other Systems: reports: Reviewed and negative Physical Exam - Vital Signs Temperature: 36.2 C Pulse Rate: 85 Respiratory Rate: 18 Blood Pressure: 163/80 - Physical Exam General Appearance: positive: Alert, Anxious Eyes Bilateral: positive: Normal inspection ENT: positive: Other (mask on not observed) Neck: positive: Trachea midline Cardiovascular: positive: Regular rate & rhythm Respiratory: positive: No respiratory distress Abdomen: positive: Non-tender, Soft Skin: positive: Pallor, Dryness, Other (hair growing in) Extremities: positive: No pedal edema Neurologic/Psychiatric: positive: Oriented x3, Mood/affect nml Palliative Care - POLST Patient has POLST: No Pain: No pain Tiredness/Fatigue: None Drowsiness/Sedation: None Nausea: None Anorexia: Moderate (4-6), Weight loss Dyspnea: None Depression: None Anxiety: Moderate (4-6) (related to pending scans) Feelings of wellbeing/Perceived Quality of Life: Good, Acceptable, No change Sleep: Sleeps well Constipation: No Performance Status: Patient is quite active, she does pace herself. She is noting some increased activity intolerance, she has always at baseline been very active. She is still walking, doing her gardening, housework and just takes a break when she needs to. She is doing her own cooking, she does have neighbors and her son doing her shopping. She enjoys reading and tea. - Palliative Care Discussion: Patient was quite pleased with the results from her skin, she reports it was "excellent", her perception unfortunately was she only had 1 more treatment, patient has been very complicated in trying to complete her advance care planning, she does defer most things to her son and her neighbor. She has not brought any documents, will just leave it be for now. Addendum; did talk with oncologist, reviewed that the patient had good response, she is to continue on maintenance treatment until she progresses. Did call patient, gently discussed with patient current plan of care. Reviewed that I had spoke with oncologist, plan is to continue the Herceptin and Perjeta every 3 weeks until she shows progression. That she does have metastatic breast cancer, and that her treatment is for managing, not cure. She did say she remembered Dr. Pitts talking about this, so did try and be encouraging to telling her that we would be checking her scans, and even if it did recur, there are other options as she does have breast cancer. That we would continue to hope for the best, and support her through her journey. She did seem to verbalize understanding, unclear has cannot read her emotional cues how she was doing. She did seem okay, she did verbalize back she understood that she would continue on maintenance treatment, and have intermittent scans, and we would treat if her cancer progressed again. Results - Lab Results Lab results reviewed: Yes Impression and Recommendations - Palliative Care Impression: This is a ely 74-year-old woman with recurrent stage IV breast cancer, with known mets to the lung, right axilla, bone, and mediastinum. She is currently on maintenance, recently with this scan showing no progression of disease. She continues with low symptom burden, continues to struggle with hypertension, and some mild short-term memory deficits. Palliative care continue provide support regarding advanced care planning, anticipatory guidance, and symptom management is warranted. Recommendations/Counseling Done: 1. Weight loss. Patient remains quite thin, though this is been her baseline. She reports her weight loss of 1 to 2 pounds. She tries to eat healthy, we did discuss again counseling regarding strategies to improve her calorie intake, as well as maintain her fluid status. Patient is going to try some protein drinks, encouraged use 1-2 a day. Goals not to have further weight loss. 2. Fatigue. This is multifactorial, patient has had tried to pace activities, and continues to stay quite active. She is working in her garden, and finds this somewhat energizing actually. 3. Anxiety. This is multifactorial, she continues to struggle with this. She does have at friend next-door, but does live alone. She has been trying to manage her finances, this is caused her some stress. I did give her the financial analysis manager phone number as she is worried about her bills. 4. Metastatic breast cancer. Patient continues to struggle with memory issues, we did review patient's current understanding of her disease process and treatment. Did clarify with oncology and follow-up in addendum to make sure patient understood treatment plan. Patient was able to verbalize understanding, and recall that treatment was palliative in nature. 5. Hypertension. Did follow-up with primary care provider, had added hydrochlorothiazide, patient not followed up as instructed. Patient instructed to get blood pressure cuff, have son or neighbor help her get some baseline numbers. It has continued to run somewhat high, unclear if this is related to her hydronephrosis. She does have a history of hypertension. Counseling provided regarding the need to follow-up with her PCP and get blood pressure better under control. She does verbalize understanding. 6. Advanced care planning. She does defer to her son who is her D POA Carie Hodgkin's [phone] regarding her fears and overall plans and support for end-of-life. Have not made much progress in moving forward with her DPOAE and advance care planning documents. She reports she had made some with her many years ago who is unable to locate them at this point. We will continue to build rapport and support patient through her journey. Time Spent: 45 minutes with greater than 50% of this done in counseling regarding disease, treatment, addressing anxiety, and anticipatory guidance.
== END 2020-06-16 11:21 | disposition home or self-care (01) ==
LOC: PC 11:20
PROVIDERS: ATTEND Nurse Practitioner Adult Health
DX: Z51.5 Encounter for palliative care (principal); R63.4 Abnormal weight loss; R53.83 Other fatigue; F41.9 Anxiety disorder, unspecified; R41.3 Other amnesia; I10 Essential (primary) hypertension; C50.919 Malignant neoplasm of unspecified site of unspecified female breast; C79.51 Secondary malignant neoplasm of bone; C78.00 Secondary malignant neoplasm of unspecified lung; C78.1 Secondary malignant neoplasm of mediastinum; C77.3 Secondary and unspecified malignant neoplasm of axilla and upper limb lymph nodes; Z79.899 Other long term (current) drug therapy; Z79.52 Long term (current) use of systemic steroids
CPT/HCPCS: 99215

== ENCOUNTER 2020-07-16 10:57 | Outpatient (CLI) | payer MEDICARE, OTHER | END 2020-07-16 10:58 | disposition home or self-care (01) | LOC: DI 10:57 | PROVIDERS: ATTEND Internal Medicine | DX: C77.3 Secondary and unspecified malignant neoplasm of axilla and upper limb lymph nodes (principal); C50.919 Malignant neoplasm of unspecified site of unspecified female breast; C78.01 Secondary malignant neoplasm of right lung; C78.02 Secondary malignant neoplasm of left lung; I35.8 Other nonrheumatic aortic valve disorders | CPT/HCPCS: 93306 ==

== ENCOUNTER 2020-10-06 10:24 | Outpatient (CLI) | payer MEDICARE, OTHER ==
--- NOTE | 2020-10-06 20:55 | CONSULTATION NOTE ---
Palliative Care Follow Up - Referral Referring Provider: Trish Partida PA-C Time of Visit: :-11 Referral setting: [facility] Referral Reason: Anxiety/Stage IV Breast CA - Information Sources Records reviewed: Previous records reviewed History/Review of Systems obtained from: Patient Exam limitations: Clinical condition (mild STM deficits) - History of Present Illness Update Brief HPI Update: This is a ely 74-year-old [place] woman with stage IV right breast cancer of the right axilla, lung, bone, mediastinum HER-2 positive since 08/10/2019. She has completed her first line chemotherapy, and is currently on her maintenance of HP, and has tolerated this fairly well. Her last CT of chest abdomen/pelvis 08/18/2020 showed no evidence of recurrent disease. She is due for restaging again in October. She has intermittent diarrhea, continues to struggle to maintain her weight, and does have some underlying anxiety. She has been working with her new PCP Dr. Hussein, to address her hypertension, she is currently on lisinopril 20 mg, and Klonopin 0.1 mg, and has been advised to take extra Klonopin on her chemotherapy days. Patient had not shown up for appointment, there was concern is patient does live alone. Did reach out to son, Rickey. He does express concerns regarding her memory, he does come every other weekend to provide her support. He is concerned about her mounting medical bills, she has been referred to financial services, but does seem somewhat distressed with the process. When asked young ent about this, later during visit, as her car had not started was the underlying reason she was late. She is quite befuddled how to move forward with this, did discuss had spoken with son who is willing to have financial services call him, she was relieved by this. Past Medical History: Hypertension, colon polyps, breast cancer, chronic vision loss, anxiety, osteoarthritis, mastectomy and right axillary dissection. Social History - Living Situation Living arrangement: At home Living Situation: Alone Support System: Patient is , her of pancreatic cancer about 7 years ago. She is lived on [facility] for about 10 years in the house that they have built, she continues to strive to be independent. She does have sister in [place] whom she talks with frequently, provides her psychosocial support. Her neighbor Sanjana helps her track appointments and checks on her regularly. Her son comes every other weekend to do grocery shopping and household maintenance. She feels she is currently managing well independently. Medications/Allergies - Medications Home Medications: Ambulatory Orders Medication Instructions Recorded Confirmed lisinopriL [Lisinopril] 20 mg PO DAILY 07/22/14 10/06/20 Multivitamin [Multivitamins] 1 each PO DAILY 01/20/15 10/06/20 Ascorbic Acid [Vitamin C] 500 mg PO DAILY 09/16/19 10/06/20 Magnesium 125 mg PO DAILY 09/23/19 10/06/20 Lidocaine/Prilocain 2.5% Cream 30 gm TOP PRN PRN 11/12/19 10/06/20 [Emla 2.5% Cream] Ondansetron [Ondansetron Odt] 8 mg PO Q8H PRN 11/12/19 10/06/20 Prochlorperazine [Compazine] 10 mg PO Q6H PRN 11/12/19 10/06/20 Melatonin 3 mg PO QPM 12/04/19 10/06/20 cloNIDine [Catapres] 0.1 mg PO ONCE 10/06/20 10/06/20 - Allergies Allergies/Adverse Reactions: Allergies Allergy/AdvReac Type Severity Reaction Status Date / Time cortisone [Cortisone] AdvReac Intermediate shaking, Verified 08/25/20 10:43 dizzy Review of Systems - Constitutional Constitutional: reports: Fatigue (mild), Weight loss (2-3 pounds). denies: Fever, Chills - Eyes Eyes: reports: Vision loss - Cardiovascular Cardiovascular: denies: Edema - Respiratory Respiratory: denies: Cough, SOB at rest - Gastrointestinal Gastrointestinal: reports: Diarrhea (intermittent after treatment), Good appetite. denies: Nausea - Musculoskeletal Musculoskeletal: reports: Muscle aches, Stiffness - Integumentary Integumentary: reports: Dryness - Neurological Neurological: reports: Memory problems - Psychiatric Psychiatric: reports: Anxiety. denies: Depression - All Other Systems All Other Systems: reports: Reviewed and negative Physical Exam - Vital Signs Temperature: 36.3 C Pulse Rate: 98 Respiratory Rate: 18 Blood Pressure: 154/98 - Physical Exam General Appearance: positive: Alert, Anxious (had been late, car did not start; "doesn't drive anywhere" with pandemic) Eyes Bilateral: positive: Normal inspection ENT: positive: Other (mask on not observed) Neck: positive: Trachea midline Cardiovascular: positive: Regular rate & rhythm Respiratory: positive: No respiratory distress, Breath sounds nml Abdomen: positive: Non-tender, Soft Skin: positive: Pallor, Dryness, Other (hair growing in) Extremities: positive: No pedal edema Neurologic/Psychiatric: positive: Oriented x3, Mood/affect nml Palliative Care - POLST Patient has POLST: No Pain: No pain Tiredness/Fatigue: Mild (1-3) Drowsiness/Sedation: Mild (1-3) Nausea: None Anorexia: Mild (1-3) Dyspnea: None Depression: None Anxiety: Mild (1-3) Feelings of wellbeing/Perceived Quality of Life: Good, Acceptable, No change Sleep: Sleeps well Constipation: No Performance Status: Does manage her own ADLs, she does have a two-story house. She is able to manage household tasks by pacing herself. She does take frequent rests, does stay active. - Palliative Care Discussion: She was a little rattled by having her car not start this morning, but feels like things are going well overall. She continues to be worried about her medical bills, but does not appear to follow through on anything. She does continue to present with low symptom burden, but is settled in her current way of life. She does see her son every other weekend, and stays connected to her neighbor. She continues to hope for the best, she does understand her treatment is for rest of her life. She does defer to her son who is her DPOA Rickey Schaeffer [phone]. He is concerned by her worsening memory problems, does try and track her, would appreciate assistance and follow-up regarding her bills.W ill reach out with next visit for further support for advance care planning, patient has been introduced to the POLST, and was going to talk to him about this. She cannot remember if she did this or not. Results - Lab Results Lab results reviewed: Yes Impression and Recommendations - Palliative Care Impression: This is a ely 74-year-old woman with recurrent stage IV right axillary breast cancer, HER-2 positive currently receiving palliative treatment. She is on maintenance therapy and tolerating this well. She does present with high anxiety, ongoing mild cognitive deficits, and low symptom burden overall. Palliative care to provide support regarding advance care planning, anticipatory guidance, and symptom management as needed Recommendations/Counseling Done: 1. Weight loss. Patient remains quite thin, though has been this way most of her life. She reports in her mind her weight is currently stable though does fluctuate 1 to 2 pounds. She is able to relay different strategies she is using to keep her calories up, as well as keeping her fluids. Son does provide ongoing groceries, recommended obtaining protein drinks to supplement. 2. Anxiety. This is multifactorial, she is doing better with this overall. S he does live alone, but is able to identify activities that provide her support. She does have her neighbor checking on her frequently. 3. Hypertension. She is working with her PCP for control of her hypertension, she is currently on lisinopril 20 mg and Catapres 0.1 mg daily. 4. Advanced care planning. She continues to forget to bring in her advance care planning documents, did reach out as a result trying to follow-up on patient as she was late for appointment, did speak with her son. He does express concerns regarding her cognitive Pink. For both of them the medical bills remain high stressors, patient does agree to allow son to be able to navigate for her. Contact with finance/billing department with this information. Patient has been directed multiple times to patient financial legal assistant. She gets easily befuddled by this, suspect she has not followed through Time Spent: 35 minutes with greater than 50% of this done in counseling and addressing anxiety, coordination of care with financial services, and anticipatory guidance.
== END 2020-10-06 10:25 | disposition home or self-care (01) ==
LOC: PC 10:24
PROVIDERS: ATTEND Nurse Practitioner Adult Health
DX: Z51.5 Encounter for palliative care (principal); R63.4 Abnormal weight loss; I10 Essential (primary) hypertension; C50.911 Malignant neoplasm of unspecified site of right female breast; C78.00 Secondary malignant neoplasm of unspecified lung; C79.51 Secondary malignant neoplasm of bone
CPT/HCPCS: 99214

== ENCOUNTER 2020-11-03 20:57 | Emergency (ER) | payer MEDICARE, OTHER ==
--- NOTE | 2020-11-03 22:10 | ED Physician Documentation ---
History of Present Illness - Stated complaint Stated Complaint: SHIVERING - Chief complaint Chief Complaint: Exposure - History obtained from History obtained from: Patient, Police - Additonal information Additional information: Patient is brought to the emergency department by the , who found the patient in her car in the parking lot, shivering and cold. This deputy sheriff building guard reports that the patient has according to family been having some cognitive issues lately, and has been in the process of work-up for this. [place] and neighbors look in on her. Her son and [id number] live in [place], but do help patient somewhat with her affairs. Sure states that the son reported to him that the patient had an appointment with a specialist at 9:00 this morning. She showed up at 830 last night for this appointment was sent home after being discovered. The patient then came back at 3:00 this morning for the appointment and was again sent home. Lastly, patient showed up at 8:00 this morning and was told to come back in an hour; however, she never did return. The patient does not exactly remember the circumstances, but does note that she was in her car and the car would not start. Please officer notes that the car was in the "drive" gear and so could not be started. The patient apparently did not attempt to get help, but sat in the car all day trying to figure out what to do. The Toddler Lead Teacher was driving through the parking lot when he saw the patient in her car and went to check on her and make sure she was okay. When she seemed somewhat confused and cold, he investigated further and was able to talk to the patient's son. states that the patient seems to be stable and that he has worked out a plan with the son in which the patient will go home to her neighbor's house and wait there until the son, who was driving up from [place] at this very moment, comes to pick her up. The son is planning to take the patient back to [place] and have her stay at his house well all of her cognitive issues are sorted out. The patient has no complaints at this time, other than being cold. Review of Systems Ten Systems: 10 systems reviewed and negative Constitutional: reports: Reviewed and negative Eyes: reports: Reviewed and negative Ears: reports: Reviewed and negative Nose: reports: Reviewed and negative Throat: reports: Reviewed and negative Cardiac: reports: Reviewed and negative Respiratory: reports: Reviewed and negative GI: reports: Reviewed and negative : reports: Reviewed and negative Skin: reports: Reviewed and negative Musculoskeletal: reports: Reviewed and negative Neurologic: reports: Reviewed and negative Psychiatric: reports: Reviewed and negative Endocrine: reports: Reviewed and negative Immunocompromised: reports: Reviewed and negative PD PAST MEDICAL HISTORY - Past Medical History Past Medical History: Yes Cardiovascular: Hypertension Respiratory: None Neuro: None Endocrine/Autoimmune: None GI: Colon polyps 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: Breast 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 : None HEENT: Chronic vision loss Psych: Anxiety Musculoskeletal: Osteoarthritis Derm: None - Past Surgical History Past Surgical History: Yes General: Appendectomy, Colonoscopy /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: Tubal ligation HEENT: Tonsil/Adenoidectomy - Present Medications Home Medications: Ambulatory Orders Medication Instructions Recorded Confirmed lisinopriL [Lisinopril] 20 mg PO DAILY 07/22/14 11/03/20 Multivitamin [Multivitamins] 1 each PO DAILY 01/20/15 11/03/20 Ascorbic Acid [Vitamin C] 500 mg PO DAILY 09/16/19 11/03/20 Magnesium 125 mg PO DAILY 09/23/19 11/03/20 Lidocaine/Prilocain 2.5% Cream 30 gm TOP PRN PRN 11/12/19 11/03/20 [Emla 2.5% Cream] Ondansetron [Ondansetron Odt] 8 mg PO Q8H PRN 11/12/19 11/03/20 Prochlorperazine [Compazine] 10 mg PO Q6H PRN 11/12/19 11/03/20 Melatonin 3 mg PO QPM 12/04/19 11/03/20 cloNIDine [Catapres] 0.1 mg PO ONCE 10/06/20 11/03/20 - Allergies Allergies/Adverse Reactions: Allergies Allergy/AdvReac Type Severity Reaction Status Date / Time cortisone [Cortisone] AdvReac Intermediate shaking, Verified 11/03/20 21:08 dizzy - Social History Does the pt smoke?: No Smoking Status: Never smoker Does the pt drink ETOH?: Yes Does the pt have substance abuse?: No - Immunizations Immunizations are current?: Yes - POLST Patient has POLST: No PD ED PE NORMAL - Vitals Vital signs reviewed: Yes - General General: No acute distress, Well developed/nourished, Other (Patient is very well-kept, and answers questions appropriately.) - HEENT HEENT: Atraumatic, PERRL, EOMI, Moist mucous membranes - Neck Neck: Supple, no meningeal sign - Cardiac Cardiac: RRR, No murmur, Strong equal pulses - Respiratory Respiratory: No respiratory distress, Clear bilaterally - Abdomen Abdomen: Soft, Non tender, Non distended - Back Back: No CVA TTP - Derm Derm: Normal color, No rash, Other (Lower legs and feet remain quite cold, but without signs of cold-induced injury.) - Extremities Extremities: No deformity, No edema, No calf tenderness / cord - Neuro Neuro: director retirement 2-12 intact, No motor deficit, No sensory deficit, Normal speech, Other (The patient is very articulate, and answers questions appropriately for the most part. She does have occasional forgetfulness of items during our conversation.) - Psych Psych: Normal mood, Normal affect Results - Vitals Vitals: Vital Signs - 24 hr 11/03/20 11/03/20 11/03/20 21:01 21:10 22:21 Temperature 36.6 C 36.6 C 36.8 C Heart Rate 100 100 98 Respiratory 16 16 16 Rate Blood Pressure 169/98 H 169/98 H 152/88 H O2 Saturation 98 98 99 Oxygen O2 Source Room air PD MEDICAL DECISION MAKING - ED course Complexity details: considered differential, d/w patient, other ED course: The patient was extremely well-appearing in the emergency department and did have a definite plan with the police, her neighbors, and her son. The patient's temperature does not indicate significant hypothermia. She had no acute complaints and did not seem to have any acute issues, and as such, I felt she was stable for discharge with the police sergeant. We have discussed the need for further follow-up and for closer surveillance at home, both of which it sounds as though the patient will be receiving imminently. The officer states that he has talked the patient into leaving her car in the hospital parking lot for now, as it seems to both of us that she is not in any condition to be driving. We have discussed the usual indications for return. Departure - Departure Disposition: 01 Home, Self Care Clinical Impression: Confusion Condition: Stable Discharge Date/Time: 11/03/20 22:21
[2020-11-03 22:23] VITALS: BP 152/88
== END 2020-11-03 22:21 | disposition home or self-care (01) ==
LOC: ED 20:57
DX: R41.0 Disorientation, unspecified (principal)
CPT/HCPCS: 99281; 99283